=== PATIENT | male | born 2000 | race Caucasian/White ===

== ENCOUNTER 2021-01-22 16:28 | Emergency (ER) | payer OTHER, SELFPAY ==
[2021-01-22 16:36] VITALS: BP 132/77; PULSE 88; RESP 20; TEMP 36.6; O2SAT 100
[2021-01-22 16:40] VITALS: BP 132/77; PULSE 88; RESP 20; TEMP 36.6; O2SAT 100
--- NOTE | 2021-01-22 16:51 | ED.EYEPROB ---
HPI - Eye Problem General Chief complaint: Eye Problems Stated complaint: EYE REDNESS Source: patient Mode of arrival: ambulatory Limitations: no limitations History of Present Illness HPI Narrative: Patient is a 20-year-old male who presents complaining of left eye pain. Patient reports going to sleep last night with his contact lenses in place, he reports that he does not normally do that. He awoke this morning with redness and irritation to left eye and increasing pain throughout the day. He denies any significant medical history. He denies any [id number] medications prior to arrival. MD chief complaint: eye pain Related Data Allergies Allergy/AdvReac Type Severity Reaction Status Date / Time No Known Allergies Allergy Verified 01/22/21 16:38 Review of Systems Review of Systems: Narrative: CONSTITUTIONAL: Denies fever, chills, or sweats. EYES: Reports redness, irritation, tearing and pain to right eye to ENT: Denies rhinorrhea, congestion, sore throat, or otalgia. CARDIOVASCULAR: Denies chest pain, palpitations, or edema. RESPIRATORY: Denies cough or dyspnea. GASTROINTESTINAL: Denies abdominal pain, nausea, vomiting, or diarrhea. GENITOURINARY: Denies dysuria or hematuria. SKIN: Denies rash or itching. MUSCULOSKELETAL: Denies back pain, joint pain, or myalgia. NEUROLOGIC: Denies headache, numbness, dizziness, or weakness. PSYCHIATRIC: Denies anxiety or depression. PMFSH Past Medical History Medical History No significant past medical history Surgical History Surgical History Hx of appendectomy Family History Family History Other No significant family history Social History Social History (Updated 01/22/21 @ 16:55 by LANCE Davison) Smoking status: Never smoker Alcohol intake: never Substance use: never Living arrangements: with family Comments At the time of signature, I have reviewed and agree with nursing past medical, surgical, social, and family history unless otherwise noted. Please see nursing chart for further information. There is no relevant family history pertinent to the presenting complaint. Exam Narrative: Exam Narrative: GENERAL: Well-appearing, well-nourished, and in no acute distress. HEAD: Normocephalic, atraumatic. EYES: EOMI. redness and clear drainage noted to the left eye. ENT: Mucous membranes pink and moist. CHEST: No respiratory distress. HEART: Regular rate and rhythm. EXTREMITIES: Normal range of motion. SKIN: Warm, dry, no rash. NEURO: No focal deficits. Alert and oriented x3. Gait steady. PSYCH: Normal affect. No signs of depression or anxiety. Course Vital Signs Vital signs: Vital Signs Temperature 36.6 C 01/22/21 16:36 Pulse Rate 88 01/22/21 16:36 Respiratory Rate 20 01/22/21 16:36 Blood Pressure 132/77 01/22/21 16:36 Pulse Oximetry 100 01/22/21 16:36 Temperature 36.6 C 01/22/21 16:40 Pulse Rate 88 01/22/21 16:40 Respiratory Rate 20 01/22/21 16:40 Blood Pressure 132/77 01/22/21 16:40 Pulse Oximetry 100 01/22/21 16:40 Reviewed. Patient has been instructed to follow-up with his PCP regarding his blood pressure. Procedures Other Procedure Procedure 1: Other Procedure: Left eye was anesthetized with 1 drop of tetracaine and anesthesia was achieved. The eye was flushed with eyewash. Lid was inverted and examined. Cornea was dyed with fluorescein and 1 abrasions or ulcerations were noted. Patient tolerated procedure well. MDM - Eye Problem MDM Narrative Medical decision making narrative: Patient has corneal abrasion to left eye. Discussed with patient using eyedrops, not wearing contact lenses and following up with ophthalmology. Patient agrees with plan of care. Patient is stable for discharge to home with outpatient fol
== END 2021-01-22 16:54 | disposition home or self-care (01) ==
PROVIDERS: Emergency Provider Nurse Practitioner; PCP Internal Medicine
DX: H18.822 Corneal disorder due to contact lens, left eye (principal)
CPT/HCPCS: 99213; A9270; G0463